=== PATIENT | female | born 1940 | race Caucasian/White ===

== ENCOUNTER 2021-04-13 15:14 | Observation (INO) ==
[2021-04-13 16:37] LABS: Basophils # 0.1 K/mcL (0.0-0.2); Basophils % 0.8 %; Eosinophils # 0.3 K/mcL (0.0-0.6); Eosinophils % 2.3 %; Hematocrit 37.5 % (35.3-44.9); Hemoglobin 11.3 g/dL (11.5-15.4); Immature Granulocytes % 2.5 % (0-4); Lymphocytes # 1.5 K/mcL (0.6-4.6); Lymphocytes % 12.3 %; Mean Corpuscular HGB Conc 30.1 g/dL (31.6-35.5); Mean Corpuscular Hemoglobin 24.7 pg (28.0-33.3); Mean Corpuscular Volume 82.1 fL (83.0-100.0); Monocytes # 0.7 K/mcL (0.0-1.3); Monocytes % 5.7 %; Neutrophils # 9.1 K/mcL (1.6-8.9); Platelet Count 304 K/mcL (140-400); Red Blood Count 4.57 M/mcL (3.82-4.97); Red Cell Distribution Width 15.9 % (11.5-14.5); Segmented Neutrophils % 76.4 %
[2021-04-13 16:46] LABS: INR 1.1; Prothrombin Time 12.7 Seconds (9.4-12.1)
[2021-04-13 16:48] LABS: Activated Partial Thrombo Time 29.9 Seconds (26.0-36.0)
[2021-04-13 17:03] LABS: Alanine Aminotransferase 6 Units/L (7-52); Albumin 3.7 g/dL (3.5-5.7); Albumin/Globulin Ratio 1.2 (1.1-2.2); Alkaline Phosphatase 122 Units/L (34-104); Aspartate Amino Transferase 10 Units/L (13-39); BUN/Creatinine Ratio 19 (6-26); Bilirubin,Direct 0.1 mg/dL (0.0-0.2); Bilirubin,Indirect 0.2 mg/dL (0.0-1.0); Bilirubin,Total 0.3 mg/dL (0.3-1.0); Blood Urea Nitrogen 12 mg/dL (8-23); Calcium 9.3 mg/dL (8.6-10.3); Carbon Dioxide 28 mEq/L (23-29); Chloride 105 mEq/L (98-107); Globulin 3.1 g/dL (2.4-3.5); Glucose 139 mg/dL (70-105); Osmolality,Calculated 296 (280-300); Potassium 3.7 mEq/L (3.5-5.1); Sodium 142 mEq/L (136-145); Total Protein 6.8 g/dL (6.4-8.9); Troponin I < 0.03 ng/mL (< 0.04); eGFR For African Americans > 60 (> 60); eGFR For Non-African Americans > 60 (> 60)
[2021-04-13] MEDS ORDERED: Naloxone 0.4 MG/ML INJ IVP PRN (20:57)
[2021-04-13] MEDS ORDERED: Ondansetron 4 MG/2 ML VIAL IVP PRN (20:57)
[2021-04-13] MEDS ORDERED: Acetaminophen 325 MG TABLET PO PRN (20:57)
[2021-04-14 03:17] VITALS: O2SAT 92
[2021-04-14] MEDS ORDERED: Furosemide 40 MG/4 ML VIAL IVP ONE (07:30)
[2021-04-14 11:43] VITALS: BP 168/72; PULSE 72; TEMP 98
== END 2021-04-14 15:49 | disposition home or self-care (01) ==
LOC: 3BNU 15:14 → EMEROOARM 15:14 → SUATTDRO 19:55 → 3BNU 21:10
PROVIDERS: ADMIT Student in an Organized Health Care Education/Training Program; ATTEND Registered Nurse

== ENCOUNTER 2021-09-18 05:31 | Inpatient (IN) ==
[2021-09-18] MEDS ORDERED: Ondansetron 4 MG/2 ML VIAL IVP STA (06:08)
[2021-09-18 06:43] LABS: Hematocrit 38.2 % (35.3-44.9); Hemoglobin 11.8 g/dL (11.5-15.4); Mean Corpuscular HGB Conc 30.9 g/dL (31.6-35.5); Mean Corpuscular Hemoglobin 24.7 pg (28.0-33.3); Mean Corpuscular Volume 79.9 fL (83.0-100.0); Mean Platelet Volume 11.8 fL (9.4-12.4); Platelet Count 147 K/mcL (140-400); Red Blood Count 4.78 M/mcL (3.82-4.97); Red Cell Distribution Width 20.6 % (11.5-14.5)
[2021-09-18 06:45] LABS: VBG HCO3 21 mEq/L (21-27); VBG PCO2 44 mmHg (41-51); VBG PH 7.28 pH Units (7.32-7.42); VBG PO2 40 mmHg (25-50)
[2021-09-18 06:52] LABS: INR 1.3; Prothrombin Time 14.8 Seconds (9.4-12.1)
[2021-09-18 06:55] LABS: Activated Partial Thrombo Time 31.2 Seconds (26.0-36.0)
[2021-09-18 06:58] LABS: Bacteria,Urine Few per hpf (None-Few); Bilirubin,Urine Small (Negative); Blood,Urine Moderate (Negative); Clarity,Urine Ex.Turbid (Clear); Color,Urine Yellow (Yellow); Glucose,Urine (UA) Normal (Normal); Ketones,Urine Negative (Negative); Leukocyte Esterase,Urine Large (Negative); Mucus,Urine Few per lpf (None-Few); Nitrite,Urine Negative (Negative); PH,Urine 5.5 pH Units (5.0-8.0); Protein,Urine 100 mg/dL (Neg-Trace); RBC,Urine 30-50 per hpf (0-3); Specific Gravity,Urine 1.021 (1.010-1.025); Squamous Epithelial Cell,Urine Moderate per hpf (None-Few); Transitional Epi Cells,Urine Moderate per hpf (None-Few); WBC,Urine TNTC per hpf (0-3)
[2021-09-18 07:10] LABS: Albumin 2.7 g/dL (3.5-5.7); Albumin/Globulin Ratio 0.9 (1.1-2.2); Bilirubin,Direct 1.1 mg/dL (0.0-0.2); Bilirubin,Indirect 0.6 mg/dL (0.0-1.0); Bilirubin,Total 1.7 mg/dL (0.3-1.0); Calcium 8.2 mg/dL (8.6-10.3); Magnesium 2.2 mg/dL (1.6-2.6); Potassium 4.6 mEq/L (3.5-5.1); Total Protein 5.7 g/dL (6.4-8.9); Troponin I 0.04 ng/mL (< 0.04)
[2021-09-18 07:14] LABS: Influenza A PCR Negative (Negative); Influenza B PCR Negative (Negative); Resp. Syncytial Virus PCR Negative (Negative); SARS-CoV-2 by PCR (In House) Negative (Negative)
[2021-09-18 07:16] LABS: Anisocytosis 1+ (Not Present); Eosinophils # 18.2 K/mcL (0.0-0.6); Platelet Estimate Normal (Normal); Toxic Granulation Present (Not Present); Toxic Vacuolation Present (Not Present)
[2021-09-18 07:17] LABS: Lymphocytes # 1.5 K/mcL (0.6-4.6); Neutrophils # 55.5 K/mcL (1.6-8.9)
[2021-09-18] MEDS ORDERED: cefTRIAXone 1,000 MG in 0.9 % Sodium Chloride Mini Bag 100 ML IVPB ONE (07:57)
[2021-09-18] MEDS ORDERED: 0.9 % Sodium Chloride 500 ML IVC ONE (07:58)
[2021-09-18] MEDS ORDERED: Ondansetron 4 MG/2 ML VIAL IVP PRN (10:19)
[2021-09-18] MEDS ORDERED: Naloxone 0.4 MG/ML INJ IVP PRN (10:19)
[2021-09-18] MEDS ORDERED: Acetaminophen 325 MG TABLET PO PRN (10:19)
[2021-09-18] MEDS: 0.9 % Sodium Chloride 1,000 ML IVC SCH (12:48)
[2021-09-18] MEDS: Sucralfate 1 GM TABLET PO SCH (15:49)
[2021-09-18] MEDS: Metoprolol XL (24 HR) Succ 50 MG TAB.ER.24H PO SCH (15:49)
[2021-09-18] MEDS: *HR* Heparin 5,000 UNIT/ML VIAL SQ SCH (17:50)
[2021-09-18] MEDS: Budesonide/Formoterol 160/4.5 1 PUFF INH IH SCH (19:23)
[2021-09-18] MEDS: rOPINIRole 0.25 MG TABLET PO SCH (21:36)
[2021-09-18] MEDS: *HR* HYDROcodone/Acet 5/325 mg TABLET PO PRN (21:43)
[2021-09-18 22:04] LABS: Creatinine,Urine 118 mg/dL; Sodium, Urine < 10.0 mEq/L
[2021-09-19] MEDS: 0.9 % Sodium Chloride 1,000 ML IVC SCH (02:35)
[2021-09-19 05:24] LABS: Hematocrit 37.3 % (35.3-44.9); Hemoglobin 11.4 g/dL (11.5-15.4); Immature Platelets 13.4 % (1.1-6.1); Mean Corpuscular HGB Conc 30.6 g/dL (31.6-35.5); Mean Corpuscular Hemoglobin 25.2 pg (28.0-33.3); Mean Corpuscular Volume 82.5 fL (83.0-100.0); Mean Platelet Volume 12.4 fL (9.4-12.4); Nucleated Red Blood Cells 0.1 /100 WBC (0); Platelet Count 131 K/mcL (140-400); Red Blood Count 4.52 M/mcL (3.82-4.97); Red Cell Distribution Width 21.1 % (11.5-14.5)
[2021-09-19 05:44] LABS: Albumin 2.4 g/dL (3.5-5.7); Albumin/Globulin Ratio 0.9 (1.1-2.2); Bilirubin,Total 1.7 mg/dL (0.3-1.0); Calcium 7.6 mg/dL (8.6-10.3); Chol/HDL Ratio 22.8 (0-4.9); Globulin 2.8 g/dL (2.4-3.5); Magnesium 2.3 mg/dL (1.6-2.6); Potassium 4.9 mEq/L (3.5-5.1); Total Protein 5.2 g/dL (6.4-8.9)
[2021-09-19] MEDS: *HR* Heparin 5,000 UNIT/ML VIAL SQ SCH (05:48)
[2021-09-19] MEDS: *HR* HYDROcodone/Acet 5/325 mg TABLET PO PRN (05:51)
[2021-09-19 05:53] LABS: White Blood Count 63.8 K/mcL (4.3-11.1)
[2021-09-19 06:14] LABS: Hypochromasia Present (Not Present); Lymphocytes # 3.8 K/mcL (0.6-4.6); Neutrophils # 57.4 K/mcL (1.6-8.9)
[2021-09-19 06:15] LABS: Anisocytosis 1+ (Not Present); Platelet Estimate Normal (Normal); Toxic Granulation Present (Not Present); Toxic Vacuolation Present (Not Present)
[2021-09-19] MEDS: Budesonide/Formoterol 160/4.5 1 PUFF INH IH SCH ×2 (07:58→19:53)
[2021-09-19] MEDS ORDERED: DilTIAZem CD (24hr) 180 MG CAP.ER.24H PO SCH (09:00)
[2021-09-19] MEDS: Metoprolol XL (24 HR) Succ 50 MG TAB.ER.24H PO SCH (09:10)
[2021-09-19] MEDS: Aspirin Enteric Coated 81 MG Tablet PO SCH (09:11)
[2021-09-19] MEDS: cefTRIAXone 1,000 MG in Water for inj. (sterile) 10 ML IVP SCH (09:16)
[2021-09-19] MEDS: Sucralfate 1 GM TABLET PO SCH ×2 (09:47→14:48)
[2021-09-19] MEDS: Cyanocobalamin (B-12) 1,000 MCG TABLET PO SCH (09:48)
[2021-09-19] MEDS: *HR* OxyCODONE Immed Rel 5 MG TABLET PO PRN (15:34)
[2021-09-19 15:50] VITALS: TEMP 97.6
[2021-09-19] MEDS: rOPINIRole 0.25 MG TABLET PO SCH (20:19)
[2021-09-20] MEDS: *HR* OxyCODONE Immed Rel 5 MG TABLET PO PRN (00:15)
[2021-09-20 04:30] VITALS: BP 111/50; PULSE 62
[2021-09-20] MEDS: Budesonide/Formoterol 160/4.5 1 PUFF INH IH SCH (07:52)
[2021-09-20 08:53] VITALS: O2SAT 85
[2021-09-20] MEDS: Sucralfate 1 GM TABLET PO SCH (09:17)
[2021-09-20] MEDS: Aspirin Enteric Coated 81 MG Tablet PO SCH (09:18)
[2021-09-20] MEDS: cefTRIAXone 1,000 MG in Water for inj. (sterile) 10 ML IVP SCH (09:19)
[2021-09-20] MEDS: Cyanocobalamin (B-12) 1,000 MCG TABLET PO SCH (09:19)
== END 2021-09-20 11:05 | disposition hospice, home (50) | DRG 871 ==
LOC: 2ANU 05:31 → EMEROOARM 05:31 → 2ANU 11:40 → SUATTDRO 13:12
PROVIDERS: ADMIT Internal Medicine; ATTEND Internal Medicine